=== PATIENT | female | born 1950 | race Caucasian/White ===

== ENCOUNTER 2017-12-11 08:00 | Outpatient (CLI) | payer MEDICARE ==
[2017-12-11 19:12] LABS: ALBUMIN 4.2 g/dL (3.2-5.5); ALBUMIN/GLOBULIN RATIO 1.3 (1.0-2.2); ALKALINE PHOSPHATASE 77 IU/L (42-121); ALT ALANINE AMINOTRANSFERASE 30 IU/L (10-60); AST ASPARTATE AMINOTRANSFERASE 24 IU/L (10-42); BILIRUBIN,TOTAL 0.3 mg/dL (0.2-1.0); BUN - BLOOD UREA NITROGEN 13 mg/dL (6-20); CARBON DIOXIDE - CO2 23 mmol/L (21-32); CHLORIDE 101 mmol/L (101-111); CHOL/HDL RATIO 4.5 (<4.4); CHOLESTEROL 273 mg/dL; GFR - MDRD 55 (>89); GLUCOSE 109 mg/dL (70-100); HDL CHOLESTEROL 61 mg/dL; LDL CHOLESTEROL,CALCULATED 155 mg/dL; LDL/HDL RATIO 2.5 (<4.4); SODIUM 134 mmol/L (135-145); TOTAL PROTEIN 7.5 g/dL (6.7-8.2); VLDL CHOLESTEROL 57 mg/dL
== END 2017-12-11 08:01 | disposition home or self-care (01) ==
LOC: LAB.N 08:00
PROVIDERS: ATTEND Nurse Practitioner Gerontology
DX: E78.5 Hyperlipidemia, unspecified (principal); I10 Essential (primary) hypertension
CPT/HCPCS: 36415; 80053; 80061; 83721

== ENCOUNTER 2021-11-24 16:29 | Outpatient (CLI) | payer MEDICARE | END 2021-11-24 16:30 | disposition EMS.NT | LOC: EMS 16:29 | DX: R11.0 Nausea (principal); F41.9 Anxiety disorder, unspecified ==

== ENCOUNTER 2022-07-28 15:44 | Outpatient (CLI) | payer MEDICARE ==
--- NOTE | 2022-07-28 17:16 | SLEEP CARE CONSULTATION ---
Information from patient questionnaire entered by Hannah Ortega. I have reviewed and concur with the information entered by Hannah Ortega. This document represents the service I personally performed and the decisions made by me, Radha Downing MD, [facility]. History of Present Illness Service Date and Time: 07/28/2022 1544 Reason for Visit: New patient Chief Complaint: reports: Insomnia (insomnia started at menopause ), Fatigue, Frequent awakenings at night Date of Onset: been on sleep meds for 15 years Usual bedtime: cannot get set bedtime Time it takes to fall asleep: depends on how many straight hours of awake time Snores at night: No Observed to quit breathing while asleep: No Sleeps alone due to snoring: No Reasons for waking at night: reports: Bathroom, Other (hot flashes, unknown reason) Toss, Turn, or Twitch while sleeping: Yes Recalls having dreams: Yes Feels refreshed in the morning: No Morning headache: No Sleepy or fatigued during the day: Yes Ever fallen asleep while driving: No Prior sleep studies: No Additional HPI information: I have the pleasure of seeing Ms. Gregg today regarding the possibility of her having obstructive sleep apnea. As you know, she is a 72-year-old lady who complains of insomnia for 15 years. She asks if there is a medication that she can take to help her sleep. She has tried trazodone, amitriptyline, hydralazine, gabapentin, zolpidem, and most recently, mirtazapine. She said most will only work for a few months and she does like how they make her feel. No inquiry to her sleep habits has been made. According to her, she goes to bed around 10 pm but usually does not fall asleep until several hours later. She takes the sleep aid at 9 pm. In the morning she gets up whenever she thinks she gets enough sleep. This can be at noon or early afternoon. She does not take a nap during the day. She says she is still bothered by hot flashes at night. A hormone patch was prescribed but it cost $500 a month. She does not snore. She wakes up 2 3 times during the night. During the day she complains of feeling sleepy and fatigued. However, her score on [place] Sleepiness Scale is only 8 out of 24. She never has fallen asleep while driving nor has had any accident due to sleepiness. She usually does not take naps during the day. - Parasomnia Symptoms Ever been unable to move upon waking from sleep: No Walks in sleep: No Talks in sleep: No Ever acted out dreams in sleep: No Ever felt weak in the knees when startled or emotional: No Bothered by creepy, crawly, restless sensations in legs: No Problems with memory or concentration: No Subjective Initial [place] Sleepiness Scale score: 8 (07/28/22) Past Medical History Past Medical History: reports: Hypertension, Insulin resistance, Fibromyalgia Social History The patient's occupation is a [employer]. Patient is Single and lives in [place]. Have you smoked in the past 12 months: No Alcohol use: Yes Alcohol amount and frequency: 2 glasses occasionally Caffeine use: Yes Caffeine amount and frequency: 1 cup every morning Family History Family history of sleep disordered breathing: No Allergies and Home Medications Drug allergies reviewed: Yes Home medication list reviewed: Yes Review of Systems Weight gain over past 5 years: 45 Weight loss over past 5 years: 20 Cardiovascular: reports: high blood pressure Respiratory: denies: shortness of breath, wheeze, sputum production, chronic cough, other Gastrointestinal: reports: heartburn Urinary: denies: incontinence, frequency, urgency, impotence, other Neurological: reports: headaches Psychiatric: denies: Attention Deficit Hyperactivity, anxiety, depression, mood disorder, claustrophobia, other Ear/Nose/Throat: denies: nasal congestion, sinus problems, nose bleeds, dry mouth/throat, hoarseness, injury to nose, tonsillectomy, wisdom teeth removed, other Endocrine: reports: sluggishness Musculoskeletal: reports: joint pain, neck pain, back pain Immunologic: reports: sneezing, allergies to food or environment Physical Exam Vital signs obtained and entered by: LENA PENA Blood Pressure: 190/90 (left arm ) Cuff size: regular Heart Rate: 84 O2 Saturation: 97 Height: 5 ft 5.5 in Weight: 185 lb Body Mass Index: 30.3 BMI Classification: Obese Neck circumference: 15 (inches ) Mood/affect: anxious HEENT: No craniofacial malformation Neurologic: intact Impression and Plan IMPRESSION: 1. 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 She has tried almost all sleep aid available, but no attempt has been made to correct her sleep-wake habits. Cognitive behavior therapy (CBTi) was performed. I explained to her that without having a regular sleep-wake pattern, no medication will work. The patient had many questions, and it took over 30 minutes to answer them. The patient finally understood why she must first develop a regular schedule. She would like to have a sleep medication to help her while adjusting the schedule. This is reasonable. She would like to try nortriptyline as it is the only one she has not tried. A sleep study is not indicated. Plan: 1. Prescription made for nortriptyline 10 mg one to two taps at bedtime on as needed basis 2. Maintain a regular wake up time and spend no more than 8 hours in bed at night. Avoid naps. The patient chose 2 am 10 am. She may bean snipper the 8-hour window earlier if she has difficulty staying awake until 2 am. 3. Continue to keep sleep log 4. Return for a follow up in 2 months. Follow up with Sleep Care in: 1-2 months Visit Type: In Office Time Spent with Patient (minutes): 40 Provider Statement: I spent 100% of the Face to Face Visit with the patient with greater than 50% spent counseling the patient and coordination of care.
[2022-07-28 17:17] VITALS: BP 190/90
== END 2022-07-28 15:45 | disposition home or self-care (01) ==
LOC: SC 15:44
PROVIDERS: ATTEND Internal Medicine Pulmonary Disease
DX: G47.09 Other insomnia (principal); F19.982 Other psychoactive substance use, unspecified with psychoactive substance-induced sleep disorder
CPT/HCPCS: 99203; G0463; 99212

== ENCOUNTER 2024-08-31 19:13 | Observation (INO) ==
--- NOTE | 2024-08-31 19:46 | ED Physician Documentation ---
History of Present Illness Stated complaint Stated Complaint: LOW BP Chief complaint Chief Complaint: General History obtained from History obtained from: Patient History of Present Illness Timing: Today Additonal information Additional information: Patient is a 74-year-old female who presents to the emergency department from [facility]. She states that she is there for alcohol withdrawal. Has not been drinking any water. She states that her blood pressure was low today. She is otherwise asymptomatic. No chest pain. No shortness of breath. No nausea or vomiting. No headache. No lightheadedness or dizziness. Patient is on lisinopril, 40 mg daily as well as carvedilol 25 mg daily. She states that she does usually take these at home. Her blood pressure was 200/100 systolic when she was here 2 days ago. She has been getting Ativan for withdrawal at [facility]. [place] Coma Scale Citation Earl Lobato. Assessment of coma and impaired consciousness. A practicle scale. Lancet 1974; 2:81-4 Review of Systems Constitutional Denies: Fever or Chills Cardiovascular Denies: chest pain or palpitations Respiratory Denies: Cough Gastrointestinal Denies: Abdominal distention, Nausea or Vomiting Integumentary/Breast Denies: Rash Neurological Denies: Headache, General weakness, Focal weakness, Weakness in extremities or Numbness in extremities Meds/Allgy Home Medications Ambulatory Orders Medication Instructions Recorded Confirmed carvedilol 12.5 mg tablet 12.5 mg PO BID #60 tabs 08/29/24 08/31/24 lisinopril 20 mg tablet 20 mg PO BID #60 tabs 08/29/24 08/31/24 Allergies Allergies Allergy/AdvReac Type Severity Reaction Status Date / Time No Known Drug Allergies Allergy Verified 08/31/24 19:26 [facility] Social History Social History Smoking Status: Never smoker Relationship: Do you feel safe in your home environment?: Yes Suffered physical, verbal, emotional, or financial abuse?: No ETOH Use: None POLST Patient has POLST: No Exam Constitutional normal general appearance and no apparent distress HENMT normocephalic and oropharynx normal moist mucous membranes Eyes PERRL Neck/C-Spine visual inspection normal Respiratory breath sounds equal bilaterally, normal respiratory effort and clear to auscultation bilaterally Cardiovascular normal heart rate noted and regular rhythm noted Gastrointestinal abdomen normal to inspection, abdomen soft to palpation, nontender to palpation and nondistended Genitourinary no CVA tenderness Extremities no deformity no edema Neurology speech normal Psychiatry mental status grossly normal and oriented x3 Skin skin color normal Results Vitals Vitals: Vital Signs - 24 hr 08/31/24 19:23 08/31/24 19:30 08/31/24 19:49 Temperature 36.5 C Pulse Rate 81 76 69 Respiratory Rate 16 16 16 Blood Pressure 102/53 L 98/51 L 79/45 L O2 Saturation 95 94 91 L O2 Source Room air Room air Room air Pain Intensity 0 0 0 08/31/24 20:11 08/31/24 20:19 08/31/24 20:49 Temperature Pulse Rate 67 67 64 Respiratory Rate 14 14 16 Blood Pressure 97/47 L 88/44 L 98/49 L O2 Saturation 91 L 92 93 O2 Source Room air Room air Pain Intensity 0 0 0 08/31/24 21:19 08/31/24 22:00 Temperature Pulse Rate 65 63 Respiratory Rate 16 16 Blood Pressure 99/54 L 122/63 O2 Saturation 96 94 O2 Source Room air Room air Pain Intensity 0 0 Oxygen O2 Source Room air Labs Labs: Laboratory Tests 08/31/24 19:55 WBC 7.5 RBC 4.49 Hgb 16.2 H Hct 44.8 MCV 99.8 H MCH 36.1 H MCHC 36.2 H RDW 13.6 Plt Count 219 MPV 8.9 Neut # (Auto) 5.6 Lymph # (Auto) 1.2 L [place] # (Auto) 0.5 Eos # (Auto) 0.2 Baso # (Auto) 0.1 Absolute Nucleated RBC 0.02 Nucleated RBC % 0.3 Sodium 125 L Potassium 3.2 L Chloride 92 L Carbon Dioxide 27 Anion Gap 6.0 BUN 25 H Creatinine 1.3 Estimated GFR (MDRD) 40 L Glucose 159 H Calcium 9.7 PD Medical Decision Making ED course Complexity details: reviewed results and d/w patient ED course: Patient is a 74-year-old female who is currently at [facility] for alcohol withdrawal. She has been receiving her blood pressure medications at [facility]. She states that she does normally take them at home. She has however receiving other sedating medications that could be causing her hypotension. Given 2 L of IV fluid. Patient is still mildly hypotensive, 98-99 systolic. Her sodium is also low at 125. Her initial blood pressure was 60/40 at [facility]. We will place the patient in observation to allow her medications to wear off to ensure her blood pressure increases as expected and to recheck her sodium. No altered mental status or seizure activity. Nighttime hospitalist will be consulted. Nighttime hospitalist accepts for observation. This document was made in part using voice recognition software. While efforts are made to proofread this document, sound alike and grammatical errors may occur. Discharge Plan Discharge Patient Disposition: ED Place in Observation Condition: Stable Clinical Impression: Acute hyponatremia, Dehydration
[2024-08-31] MEDS: SODIUM CHLORIDE 0.9% 1,000 ML IV STA ×2 (19:58→20:44)
[2024-08-31 19:59] LABS: BASOPHILS # (AUTO) 0.1 10^3/uL (0.0-0.1); BASOPHILS % (AUTO) 0.9 %; EOSINOPHILS # (AUTO) 0.2 10^3/uL (0.0-0.7); EOSINOPHILS % (AUTO) 2.4 %; HCT - HEMATOCRIT 44.8 % (37.0-47.0); HGB - HEMOGLOBIN 16.2 g/dL (12.0-16.0); LYMPHOCYTES # (AUTO) 1.2 10^3/uL (1.5-3.5); LYMPHOCYTES % (AUTO) 16.2 %; MEAN CORPUSCULAR HEMOGLOBIN 36.1 pg (27.0-31.0); MEAN CORPUSCULAR HGB CONC 36.2 g/dL (32.0-36.0); MEAN CORPUSCULAR VOLUME 99.8 fL (81.0-99.0); MEAN PLATELET VOLUME 8.9 fL (7.9-10.8); MONOCYTES # (AUTO) 0.5 10^3/uL (0.0-1.0); NEUTROPHILS # (AUTO) 5.6 10^3/uL (1.5-6.6); NEUTROPHILS % (AUTO) 74.2 %; NRBC ABSOLUTE COUNT (AUTO) 0.02 x10^3/uL; NUCLEATED RED BLOOD CELLS AUTO 0.3 /100WBC; PLT - PLATELET COUNT 219 10^3/uL (130-450); RED BLOOD COUNT 4.49 10^6/uL (4.20-5.40); RED CELL DISTRIBUTION WIDTH 13.6 % (12.0-15.0); WHITE BLOOD COUNT 7.5 x10^3/uL (4.8-10.8)
[2024-08-31 20:16] LABS: CALCIUM 9.7 mg/dL (8.5-10.3); CREATININE 1.3 mg/dL (0.6-1.3); POTASSIUM 3.2 mmol/L (3.5-4.5)
[2024-08-31] MEDS ORDERED: ACETAMINOPHEN 325 MG TABLET PO PRN (21:49)
--- NOTE | 2024-08-31 21:49 | HISTORY & PHYSICAL EXAMINATION ---
Chief Complaint Chief Complaint Chief Complaint: Low BP History of Present Illness Admitted From Admitted From:: [facility] History Obtained From Records Reviewed: Yes History obtained from: ER MD, Patient and EMR Exam Limitations: Telemed History of Present Illness HPI Comment/Other: Patient is a 74-year-old female who presents to the emergency department from [facility]. She states that she is there for alcohol withdrawal. Has not been drinking any water. She states that her blood pressure was low today. She is otherwise asymptomatic. No chest pain. No shortness of breath. No nausea or vomiting. No headache. No lightheadedness or dizziness. Patient is on lisinopril, 40 mg daily as well as carvedilol 25 mg daily. She states that she does usually take these at home. Her blood pressure was 200/100 systolic when she was here 2 days ago. She has been getting Ativan for withdrawal at [facility]. Tired Telemed videoconference multiple times, unable to see patient due to technical issues at site, history obtained with discussion with ER MD< chart review and staff assistance Review of Systems Status of ROS: 10 or more systems reviewed and unremarkable except as noted in history and below Constitutional Reports: Weakness and Poor appetite PFSH Social History Social History Smoking Status: Never smoker Relationship: Do you feel safe in your home environment?: Yes Suffered physical, verbal, emotional, or financial abuse?: No ETOH Use: None POLST Patient has POLST: No Meds/Allgy Home Medications Ambulatory Orders Medication Instructions Recorded Confirmed carvedilol 12.5 mg tablet 12.5 mg PO BID #60 tabs 08/29/24 08/31/24 lisinopril 20 mg tablet 20 mg PO BID #60 tabs 08/29/24 08/31/24 Allergies Allergies Allergy/AdvReac Type Severity Reaction Status Date / Time No Known Drug Allergies Allergy Verified 08/31/24 19:26 Prior Level of Functionality: Independent with ADL Exam Exam Constitutional normal general appearance and no apparent distress HENMT normocephalic and oropharynx normal moist mucous membranes Eyes PERRL Neck/C-Spine visual inspection normal Respiratory breath sounds equal bilaterally, normal respiratory effort and clear to auscultation bilaterally Cardiovascular normal heart rate noted and regular rhythm noted Gastrointestinal abdomen normal to inspection, abdomen soft to palpation, nontender to palpation and nondistended Genitourinary no CVA tenderness Extremities no deformity no edema Neurology speech normal Psychiatry mental status grossly normal and oriented x3 Skin skin color normal Conclusion/Plan Problem List (1) Dehydration: Plan: IVF overnight NS @100 cc per hour (2) Acute hyponatremia: Plan: Likely hypovolumeic hyponatremia, give ivf repeat NA in am if continues to be low will need additional work uo (3) Alcohol abuse: Plan: Current stable monitor for any signs of withdrawl (4) HTN (hypertension): Plan: Currently hypotensive will hold BP meds for now and continue to monitor Plan Full code Lab Results Lab results reviewed: Yes 08/31/24 19:55 08/31/24 19:55 EKG Results EKG Interpreted Independently: No Core Measures DVT/VTE - Prophylaxis VTE/DVT Device ordered at admit?: Yes Telemedicine Consult Details Provider Location & Consult Time Telemedicine consultation conducted via videoconferencing?: Yes
[2024-08-31] MEDS: SODIUM CHLORIDE FLUSH 0.9% 10 ML SYRINGE IVP PRN (23:06)
[2024-08-31] MEDS: SODIUM CHLORIDE 0.9% 1,000 ML IV SCH (23:06)
[2024-09-01] MEDS: ONDANSETRON 4 MG/2 ML VIAL IVP PRN (00:10)
[2024-09-01] MEDS: SODIUM CHLORIDE FLUSH 0.9% 10 ML SYRINGE IVP SCH (00:10)
[2024-09-01] MEDS ORDERED: LORazepam 2 MG/ML VIAL IVP PRN (00:28)
[2024-09-01] MEDS: ZOLPIDEM 5 MG TABLET PO PRN (00:38)
[2024-09-01] MEDS: POTASSIUM CHLORIDE 20 MEQ TABLET PO ONE (00:42)
--- NOTE | 2024-09-01 08:14 | PROVIDER PROGRESS NOTE ---
Current Medications Current Medications Current Medications: Current Medications Generic Name Dose Route Start Last Admin Trade Name Freq PRN Reason Stop Dose Admin Acetaminophen 650 mg 08/31/24 21:49 Acetaminophen 325 Mg Tablet PO Q4HR PRN Pain 1 to 4, or Fever Sodium Chloride 1,000 mls @ 100 mls/hr 08/31/24 22:00 08/31/24 23:06 Normal Saline 0.9% IV 100 mls/hr .Q10H MAGDY Administration Lorazepam 2 mg 09/01/24 00:28 Lorazepam 2 Mg/Ml Vial IVP Q30M PRN CIWA >8 Protocol Ondansetron HCl 4 mg 08/31/24 21:49 09/01/24 00:10 Ondansetron 4 Mg/2 Ml Vial IVP 4 mg Q6HR PRN Administration Nausea / Vomiting Polyethylene Glycol 17 gm 09/01/24 09:00 Polyethylene Glycol 3350 17 Gm Packet PO DAILY MAGDY Multivit/Folic Acid/Iron 1 tab 09/01/24 08:00 Vitamin Tablet PO DAILYWM MAGDY Sodium Chloride 10 ml 08/31/24 21:49 08/31/24 23:06 Sodium Chloride Flush 0.9% 10 Ml Syringe IVP 10 ml PRN PRN Administration NEEDED PER PROVIDER ORDERS Sodium Chloride 10 ml 09/01/24 01:00 09/01/24 00:10 Sodium Chloride Flush 0.9% 10 Ml Syringe IVP 10 ml 0100,0900,1700 MAGDY Administration Thiamine HCl 100 mg 09/01/24 08:00 Thiamine 100 Mg Tablet PO DAILY MAGDY Zolpidem Tartrate 5 mg 08/31/24 21:49 09/01/24 00:38 Zolpidem 5 Mg Tablet PO 5 mg QPM PRN Administration Insomnia Objective Vital Signs/Intake & Output Vital Signs: Vital Signs x48h Temp Pulse Pulse Resp BP Pulse Ox 09/01/24 07:39 97.7 F 65 16 160/67 H 96 09/01/24 03:56 97.2 F L 62 16 123/60 97 09/01/24 00:36 97.5 F L 65 16 144/79 H 96 Intake & Output: Intake & Output 08/30/24 08/31/24 09/01/24 09/02/24 05:59 05:59 05:59 05:59 Intake Total 1999 400 / 400 Output Total 700 / 700 Balance 1999 / 1999 -300 / -300 Weight (kg) 77.5 kg Lab Results 08/31/24 19:55 09/01/24 08:15 Other Labs: Lab Results x24hrs 08/31/24 Range/Units 19:55 WBC 7.5 (4.8-10.8) x10^3/uL RBC 4.49 (4.20-5.40) 10^6/uL Hgb 16.2 H (12.0-16.0) g/dL Hct 44.8 (37.0-47.0) % MCV 99.8 H (81.0-99.0) fL MCH 36.1 H (27.0-31.0) pg MCHC 36.2 H (32.0-36.0) g/dL RDW 13.6 (12.0-15.0) % Plt Count 219 (130-450) 10^3/uL MPV 8.9 (7.9-10.8) fL Neut # (Auto) 5.6 (1.5-6.6) 10^3/uL Lymph # (Auto) 1.2 L (1.5-3.5) 10^3/uL [place] # (Auto) 0.5 (0.0-1.0) 10^3/uL Eos # (Auto) 0.2 (0.0-0.7) 10^3/uL Baso # (Auto) 0.1 (0.0-0.1) 10^3/uL Absolute Nucleated RBC 0.02 x10^3/uL Nucleated RBC % 0.3 /100WBC Sodium 125 L (135-145) mmol/L Potassium 3.2 L (3.5-4.5) mmol/L Chloride 92 L (101-111) mmol/L Carbon Dioxide 27 (21-32) mmol/L Anion Gap 6.0 (6-13) BUN 25 H (6-20) mg/dL Creatinine 1.3 (0.6-1.3) mg/dL Estimated GFR (MDRD) 40 L (>89) Glucose 159 H (74-104) mg/dL Calcium 9.7 (8.5-10.3) mg/dL Assessment/Plan Problem List (1) Acute hyponatremia: Impression: Likely due to poor solute intake in setting of chronic alcohol use. Patient presented with sodium of 125 with correction to 133 this morning. Goal correction was achieved of 8 mill equivalents. Continue IVF at this time, will monitor sodium levels. Encourage P.O. intake. (2) Dehydration: Impression: Continue gentle IVF rehydration. Continue to encourage P.O. intake. (3) Alcohol abuse: Impression: Patient with history of 6 glasses of wine a day. Currently on day 3 without any alcohol. CIWA protocol in place, has not required Ativan at this time. Continue vitamin which includes folic acid, thiamine. Continue to encourage alcohol cessation. (4) HTN (hypertension): Impression: Patient's home lisinopril 40 mg and Coreg 12.5 mg twice a day continued. Qualifiers: Hypertension type: primary hypertension Qualified Code(s): I10 - Essential (primary) hypertension
[2024-09-01] MEDS: PRENATAL VITAMIN TABLET PO SCH (08:50)
[2024-09-01] MEDS: polyethylene glycoL 3350 17 GM PACKET PO SCH (08:51)
[2024-09-01] MEDS: THIAMINE 100 MG TABLET PO SCH (08:51)
[2024-09-01 08:57] LABS: CALCIUM 9.2 mg/dL (8.5-10.3); POTASSIUM 3.5 mmol/L (3.5-4.5)
[2024-09-01] MEDS: lisinopriL 20 MG TABLET PO SCH (10:13)
[2024-09-01] MEDS: carvediloL 12.5 MG TABLET PO SCH (10:14)
--- NOTE | 2024-09-01 10:23 | Discharge Summary ---
"Discharge Summary Admit Date: 08/31/24 Discharge Date: 09/02/24 Discharging Provider: Dr. Matty Hickman DIAGNOSES Admission Diagnoses: Dehydration Acute hyponatremia Alcohol abuse Hypertension Discharge Diagnoses with Status of Each Condition: Acute hyponatremiaresolved. Likely hypovolemic, hypoosmolar due to decreased solute intake in setting of chronic alcohol use. Received normal saline 100 cc/h overnight with goal correction of 8 mill equivalents reached. Continue to encourage p.o. intake, patient's appetite has returned. Dehydrationresolved. Patient admits to decreased p.o. intake, received IV fluids overnight. Macrocytosislikely due to chronic alcohol use. Follow-up outpatient with primary care physician. Chronic alcohol usepatient actively and detox, and is trying to quit drinking. Continue and thiamine supplementation. Hypertensioncontinue lisinopril and Coreg on discharge. HPI History of Present Illness: Per Dr. Aj: Patient is a 74-year-old female who presents to the emergency department from [facility]. She states that she is there for alcohol withdrawal. Has not been drinking any water. She states that her blood pressure was low today. She is otherwise asymptomatic. No chest pain. No shortness of breath. No nausea or vomiting. No headache. No lightheadedness or dizziness. Patient is on lisinopril, 40 mg daily as well as carvedilol 25 mg daily. She states that she does usually take these at home. Her blood pressure was 200/100 systolic when she was here 2 days ago. She has been getting Ativan for withdrawal at [facility]. Tired Telemed videoconference multiple times, unable to see patient due to technical issues at site, history obtained with discussion with ER MD< chart review and staff assistance CONSULTS | PROCEDURES Consultations: Social work Procedures: None HOSPITAL COURSE Hospital Course: Patient is a 74-year-old female with a history of alcohol use. She presents for detox center, [facility], or feeling unwell. She is unable to qualify what that means. She does state that she was feeling weaker than usual. Per ED documentation, her blood pressure was as low as 79/45 during admission. She was also hyponatremic down to 125. She denies any diarrhea, constipation, nausea or vomiting. However, she does state that she has been eating less. She is unsure if she has been at her detox facility for 2 or 3 days. She does drink wine mixed with seltzer, usually about 6-8 drinks a day. She states that she is never had any symptoms of withdrawal in the past. She received IV fluid resuscitation, with normal saline at 100 cc/h. This morning, she is doing well. She does not appear to be in active withdrawal. She has not received any Ativan overnight. Her blood pressure responded well to the IV fluids. Her sodium also corrected appropriately. Will restart her lisinopril and Coreg until her blood pressure normalizes. She was advised to follow-up with her primary care physician in the outpatient setting for continued monitoring. She stated that she would like to go back to her detox center. Will be going back to [facility] to complete treatment. ALLERGIES Allergies Allergy/AdvReac Type Severity Reaction Status Date / Time No Known Drug Allergies Allergy Verified 08/31/24 19:26 MEDICATIONS Ambulatory Orders Medication Instructions Recorded Confirmed carvedilol 12.5 mg tablet 12.5 mg PO BID #60 tabs 08/29/24 08/31/24 lisinopril 20 mg tablet 20 mg PO BID #60 tabs 08/29/24 08/31/24 famotidine 20 mg tablet 20 mg PO DAILY 30 days #30 tabs 09/01/24 lisinopril 20 mg tablet 40 mg (2 x 20 mg) PO DAILY 30 days 09/01/24 #60 tabs vit,calcium 27-ferrous 1 tab PO DAILYWM #30 tabs 09/01/24 fum 60 mg iron-folic acid 1 mg tablet (Trinatal Rx 1) thiamine mononitrate (vit B1) 100 100 mg PO DAILY #30 tabs 09/01/24 mg tablet carvedilol 12.5 mg tablet 12.5 mg PO BID 30 days #60 tabs 09/02/24 PHYSICAL EXAM AT DISCHARGE General Appearance: positive No acute distress and Alert; negative Anxious Eyes Bilateral: positive Normal inspection, PERRL and Conjunctivae nml ENT: positive ENT inspection nml, Pharynx nml and No signs of dehydration Neck: positive Nml inspection, Thyroid nml and No JVD Respiratory: positive Chest non-tender and No respiratory distress; negative Wheezes, Rales or Rhonchi Cardiovascular: positive Regular rate & rhythm, No murmur and No gallop Peripheral Pulses: positive 2+ Abdomen: positive Non-tender, No distention and Rebound; negative Mass Back: positive Nml inspection; negative CVA tenderness (R) or CVA tenderness (L) Skin: positive Color nml, Dry, Pallor and Skin rash; negative No rash or Cyanosis Extremities: positive Non-tender, Full ROM, Nml appearance and No pedal edema Neurologic/Psychiatric: positive Oriented x3, Mood/affect nml and Other LABS 08/31/24 19:55 09/02/24 05:23 QUALITY (Female Hip Fx Only) Was patient sent home on osteoporosis medication?: No FOLLOW UP Follow Up: Follow up with primary care physician TIME SPENT Time Spent in Discharge (Minutes): 30 Discharge Plan Discharge Patient Disposition: 62 IRF DC/Xfer Condition: Stable Medically Cleared Comments:: [facility] Rehab facility Prescriptions: New lisinopril 20 mg Tablet 40 mg PO DAILY 30 Days Qty: 60 0RF famotidine 20 mg Tablet 20 mg PO DAILY 30 Days Qty: 30 0RF Trinatal Rx 1 60 mg iron-1 mg Tablet 1 tab PO DAILYWM Qty: 30 0RF thiamine mononitrate (vit B1) 100 mg Tablet 100 mg PO DAILY Qty: 30 0RF carvedilol 12.5 mg Tablet 12.5 mg PO BID 30 Days Qty: 60 0RF Discontinued lisinopril 20 mg tablet 20 mg PO BID Qty: 60 0RF carvedilol 12.5 mg tablet 12.5 mg PO BID Qty: 60 0RF Rx Instructions: must administer with a meal/food Diet: Regular Interventions: Belongings Inventory Last Done: 09/01/24 00:00 Discharge Last Done: 09/02/24 09:31 Discharge Checklist - Nursing Last Done: 09/02/24 09:31 Health Concerns: You presented after feeling weaker than usual at your detox facility. When he got here, we realized your sodium was low and your blood pressure was also low. You received some IV fluids. Both of these things improved. You are encouraged heavily to continue your journey of stopping your alcohol consumption. You are advised to continue taking her multivitamin, as well as your thiamine. You are also encouraged to eat and drink as much as you can. You will still continue taking your lisinopril and Coreg. Please check your blood pressure at home with a cuff you have, and make a log, and bring it in with you to your next primary care physician appointment. You should see your primary care physician within the next week or so, if possible. Thank you for allowing us to take care of you, best of luck. Care Plan Goals: 1. Stop drinking alcohol. 2. Continue lisinopril and Coreg. 3. Eat and drink more. 4. See your primary care physician. Print Language: Vietnamese Patient Instructions: Addiction Alcohol, Hyponatremia Dc Stand Alone Forms: PCP List"
[2024-09-01] MEDS: FAMOTIDINE 20 MG TABLET PO SCH (11:07)
--- NOTE | 2024-09-01 12:24 | PHARMACY PROGRESS NOTE ---
Best Possible Medication History Admit Date and Time: 08/31/24 [id number] Processed by: Pharmacy Medication History completed: Yes Patient Interview: Completed Secondary Source(s): Pharmacy records and Insurance records [facility] Statement: As the person ultimately responsible for medication therapy, providers are able to order a medication from an existing home medication list in [facility] via the "Reconcile Routine" prior to Confirmation of that medication by network support analyst. Such practice is discouraged except when the physician, in their clinical judgment, deems that a medical need exists for a medication without regard to previous use.
--- NOTE | 2024-09-01 17:01 | PROVIDER PROGRESS NOTE ---
Subjective Subjective Subjective: Patient is feeling better, she is eating and drinking well. She has been feeling a little nauseous, and had some mild abdominal pain. She is eager to go back to rehab. Current Medications Current Medications Current Medications: Current Medications Generic Name Dose Route Start Last Admin Trade Name Freq PRN Reason Stop Dose Admin Acetaminophen 650 mg 08/31/24 21:49 Acetaminophen 325 Mg Tablet PO Q4HR PRN Pain 1 to 4, or Fever Famotidine 20 mg 09/01/24 11:00 09/01/24 11:07 Famotidine 20 Mg Tablet PO 20 mg DAILY MAGDY Administration Lisinopril 40 mg 09/01/24 10:00 09/01/24 10:13 Lisinopril 20 Mg Tablet PO 40 mg DAILY MAGDY Administration Ondansetron HCl 4 mg 08/31/24 21:49 09/01/24 00:10 Ondansetron 4 Mg/2 Ml Vial IVP 4 mg Q6HR PRN Administration Nausea / Vomiting Polyethylene Glycol 17 gm 09/01/24 09:00 09/01/24 08:51 Polyethylene Glycol 3350 17 Gm Packet PO 17 gm DAILY MAGDY Administration Multivit/Folic Acid/Iron 1 tab 09/01/24 08:00 09/01/24 08:50 Vitamin Tablet PO 1 tab DAILYWM MAGDY Administration Sodium Chloride 10 ml 08/31/24 21:49 08/31/24 23:06 Sodium Chloride Flush 0.9% 10 Ml Syringe IVP 10 ml PRN PRN Administration NEEDED PER PROVIDER ORDERS Sodium Chloride 10 ml 09/01/24 01:00 09/01/24 08:51 Sodium Chloride Flush 0.9% 10 Ml Syringe IVP 10 ml 0100,0900,1700 MAGDY Administration Thiamine HCl 100 mg 09/01/24 08:00 09/01/24 09:04 Thiamine 100 Mg Tablet PO Not Given DAILY MAGDY Zolpidem Tartrate 5 mg 08/31/24 21:49 09/01/24 00:38 Zolpidem 5 Mg Tablet PO 5 mg QPM PRN Administration Insomnia Objective Vital Signs/Intake & Output Vital Signs: Vital Signs x48h Temp Pulse Resp BP Pulse Ox O2 Flow Rate 09/01/24 15:55 98.1 F 75 16 145/73 H 98 09/01/24 12:18 97.7 F 77 20 130/71 96 09/01/24 10:43 95 Intake & Output: Intake & Output 08/30/24 08/31/24 09/01/24 09/02/24 05:59 05:59 05:59 05:59 Intake Total 1999 Output Total 1200 / 1200 Balance 1999 760 / 760 Weight (kg) 77.5 kg Objective General Appearance: positive No acute distress and Anxious; negative Alert Eyes Bilateral: positive Normal inspection, PERRL and EOMI ENT: positive Pharynx nml and No signs of dehydration; negative Pharyngeal erythema or Dry mucous membranes Neck: positive Thyroid nml, No JVD and Trachea midline Respiratory: positive Chest non-tender, No respiratory distress and Breath sounds nml Cardiovascular: positive Regular rate & rhythm and No murmur; negative Irregularly irregular, Extrasystoles or Tachycardia Abdomen: positive Non-tender, No organomegaly and Tenderness (epigastric region, mild tenderness with palpation); negative Guarding, Rebound, Splenomegaly or Mass Back: positive Nml inspection; negative CVA tenderness (R) or CVA tenderness (L) Skin: positive Color nml and No rash; negative Diaphoresis Extremities: positive Non-tender, Full ROM, Nml appearance and No pedal edema Neurologic/Psychiatric: positive Oriented x3 and Weakness; negative Facial droop Lab Results 08/31/24 19:55 09/01/24 08:15 Other Labs: Lab Results x24hrs 09/01/24 08/31/24 Range/Units 08:15 19:55 WBC 7.5 (4.8-10.8) x10^3/uL RBC 4.49 (4.20-5.40) 10^6/uL Hgb 16.2 H (12.0-16.0) g/dL Hct 44.8 (37.0-47.0) % MCV 99.8 H (81.0-99.0) fL MCH 36.1 H (27.0-31.0) pg MCHC 36.2 H (32.0-36.0) g/dL RDW 13.6 (12.0-15.0) % Plt Count 219 (130-450) 10^3/uL MPV 8.9 (7.9-10.8) fL Neut # (Auto) 5.6 (1.5-6.6) 10^3/uL Lymph # (Auto) 1.2 L (1.5-3.5) 10^3/uL [place] # (Auto) 0.5 (0.0-1.0) 10^3/uL Eos # (Auto) 0.2 (0.0-0.7) 10^3/uL Baso # (Auto) 0.1 (0.0-0.1) 10^3/uL Absolute Nucleated RBC 0.02 x10^3/uL Nucleated RBC % 0.3 /100WBC Sodium 133 L 125 L (135-145) mmol/L Potassium 3.5 3.2 L (3.5-4.5) mmol/L Chloride 99 L 92 L (101-111) mmol/L Carbon Dioxide 27 27 (21-32) mmol/L Anion Gap 7.0 6.0 (6-13) BUN 19 25 H (6-20) mg/dL Creatinine 1.0 1.3 (0.6-1.3) mg/dL Estimated GFR (MDRD) 54 L 40 L (>89) Glucose 86 159 H (74-104) mg/dL Calcium 9.2 9.7 (8.5-10.3) mg/dL Assessment/Plan Problem List (1) Acute hyponatremia: Impression: Resolved. Likely hypovolemic, hypoosmolar due to decreased solute intake in setting of chronic alcohol use. Received normal saline 100 cc/h overnight with goal correction of 8 mill equivalents reached. Continue to encourage p.o. intake, patient's appetite has returned. (2) Dehydration: Impression: Resolved. Patient admits to decreased p.o. intake, received IV fluids overnight. (3) Macrocytosis without anemia: Impression: Likely due to bone marrow suppression in setting of active alcohol use. Continue to trend. (4) Alcohol abuse: Impression: Patient is trying to actively to quit drinking. Continue and thiamine supplementation. [facility] protocol in place. (5) HTN (hypertension): Impression: Continue lisinopril, hold Coreg at this time. Qualifiers: Hypertension type: primary hypertension Qualified Code(s): I10 - Essential (primary) hypertension
[2024-09-02 06:09] LABS: CALCIUM 8.6 mg/dL (8.5-10.3); CREATININE 0.7 mg/dL (0.6-1.3); POTASSIUM 3.4 mmol/L (3.5-4.5)
[2024-09-02 08:36] VITALS: O2SAT 98
[2024-09-02] MEDS: carvediloL 12.5 MG TABLET PO SCH (08:37)
[2024-09-02] MEDS: POTASSIUM CHLORIDE 20 MEQ TABLET PO ONE (08:39)
[2024-09-02 10:02] LABS: ESTIMATED AVERAGE GLUCOSE 120 mg/dL (70-100); HEMOGLOBIN A1c% 5.8 % (4.27-6.07)
== END 2024-09-02 09:31 ==
LOC: MS2 19:13 → ED 19:13 → MS2 22:52
PROVIDERS: ADMIT Internal Medicine; ATTEND Internal Medicine
DX: D75.89 Other specified diseases of blood and blood-forming organs; E87.1 Hypo-osmolality and hyponatremia; F10.10 Alcohol abuse, uncomplicated; E86.0 Dehydration; I10 Essential (primary) hypertension; I95.9 Hypotension, unspecified